=== PATIENT | male | born 1935 | race African-American/Black ===

== ENCOUNTER 2019-03-22 12:48 | Inpatient (IN) | payer MEDICARE, MEDICAID ==
[~2019-03-22] VITALS: Ht 193 cm; Wt 77.1 kg
[2019-03-22 14:17] LABS: MEAN CORPUSCULAR HEMOGLOBIN 32.5 pg (28.0-32.0); MEAN CORPUSCULAR VOLUME 89.2 fL (80.0-94.0); MEAN PLATELET VOLUME 6.8 fl (7.4-10.4); PLATELET 263 x1000/uL (130-400); RED BLOOD CELL COUNT 1.78 mill/uL (4.7-6.1); RED CELL DISTRIBUTION WIDTH 14.2 % (11.6-14.6)
[2019-03-22 14:21] LABS: HEMATOCRIT. 15.8 % (42.0-52.0); HEMOGLOBIN. 5.8 g/dL (14.0-18.0)
[2019-03-22 14:30] LABS: PLATELET ESTIMATE NORMAL
[2019-03-22] MEDS ORDERED: SODIUM CHLORIDE 3% 500ML IV SOLN IV ONE (16:45)
[2019-03-22] MEDS ORDERED: SODIUM CHLORIDE 0.45% 1,000 ML IV SCH (16:45)
[2019-03-22] MEDS ORDERED: SODIUM CHLORIDE 3% 200 ML IV ONE (17:00)
[2019-03-22 17:12] LABS: PHOSPHORUS 3.4 mg/dL (2.5-4.9)
[2019-03-22 17:15] LABS: BG BASE EXCESS -11.6 mmol/L (-2.0-2.0); BG CARBOXYHEMOGLOBIN 0.3 % (0.5-1.5); BG DEOXYHEMOGLOBIN 1.2 % (0.0-5.0); BG FRACTION INSPIRED OXYGEN 50; BG HCO3 ACT 12.7 mmol/L (22.0-26.0); BG METHEMOGLOBIN 1.1 % (0.0-1.5); BG OXYGEN SATURATION 98.8 % (92.0-98.5); BG OXYHEMOGLOBIN 97.4 % (94.0-97.0); BG PCO2 22.7 mmHg (35.0-45.0); BG PH 7.364 (7.350-7.450); BG PO2 275.3 mmHg (75.0-100.0); BG SAMPLE SITE RIGHT RADIAL; BG TIDAL VOLUME(mL) 500 mL; BG TOTAL HEMOGLOBIN 6.8 g/dL (12.0-18.0); BG VENT MODE VENT - A/C; BG VENT RATE 14 set
[2019-03-22] MEDS ORDERED: IPRATROPIUM/ALBUTEROL 0.5-3(2.5)MG/3ML NEB HHN PRN (17:15)
[2019-03-22 17:56] LABS: CLARITY URINE TURBID (CLEAR); COLOR URINE YELLOW (YELLOW); KETONES URINE NEGATIVE (NEGATIVE); LEUKOCYTE ESTERASE URINE 3+ (NEGATIVE); NITRITE URINE NEGATIVE (NEGATIVE); OCCULT BLOOD URINE TRACE (NEGATIVE); PH URINE >=9.0 (4.5-8.0); PROTEIN URINE 3+ (NEGATIVE); UROBILINOGEN URINE 0.2 E.U./dL (0.2-1.0)
[2019-03-22] MEDS ORDERED: POTASSIUM CHLORIDE IV SCH (18:00)
[2019-03-22] MEDS ORDERED: POTASSIUM CHLORIDE INJ 60 MEQ in SODIUM CHLORIDE 0.9% 500 ML IV SCH (18:00)
[2019-03-22] MEDS ORDERED: SODIUM CHLORIDE 0.45% IV SCH (18:00)
[2019-03-22] MEDS ORDERED: ONDANSETRON HCL 4MG/2ML INJ IV PRN (18:15)
[2019-03-22] MEDS ORDERED: DOCUSATE SODIUM 100MG CAPSULE PO PRN (18:15)
[2019-03-22] MEDS ORDERED: LORAZEPAM 2MG/ML CPJ IV PRN (18:15)
[2019-03-22] MEDS ORDERED: MORPHINE SULFATE 2 MG/ML CPJ (NOT FOR IM USE) IV PRN (18:15)
[2019-03-22] MEDS ORDERED: ACETAMINOPHEN 650MG/20.3ML UDC GT PRN (18:15)
[2019-03-22] MEDS ORDERED: HYDROCODONE/ACETAMINOPHEN 5/325MG TABLET PO PRN (18:15)
[2019-03-22] MEDS ORDERED: PANTOPRAZOLE SODIUM 40 MG/VIAL IV SCH (18:15)
[2019-03-22] MEDS ORDERED: CLINDAMYCIN 600MG PREMIX 50 ML IV SCH (18:30)
[2019-03-22 18:43] LABS: TOTAL IRON BINDING CAPACITY 198 ug/dL (250-450)
[2019-03-22] MEDS ORDERED: SODIUM BICARBONATE 8.4% 1 MEQ/ML 50ML SYR IV NR (19:40)
[2019-03-22 20:00] VITALS: BP 159/76
[2019-03-22] MEDS ORDERED: MAGNESIUM 1 G PREMIX 100 ML IV NR (21:00)
[2019-03-22 22:00] VITALS: BP 159/84
[2019-03-22] MEDS: CLINDAMYCIN 600MG PREMIX 50 ML IV SCH (22:37)
[2019-03-22] MEDS: PANTOPRAZOLE SODIUM 40 MG/VIAL IV SCH (22:41)
[2019-03-22] MEDS: SODIUM CHLORIDE 0.45% 1,000 ML IV SCH (22:46)
[2019-03-23] VITALS (17 sets, daily range): BP systolic 122–184; BP diastolic 60–88
[2019-03-23] MEDS ORDERED: AMLO10TA4 GT (00:27)
[2019-03-23] MEDS ORDERED: FERR220S12 GT (00:34)
[2019-03-23] MEDS ORDERED: KEPPSOL GT (00:34)
[2019-03-23] MEDS ORDERED: CHOL400T31 GT (00:34)
[2019-03-23] MEDS ORDERED: LORA1TAB GT (00:34)
[2019-03-23] MEDS ORDERED: HYDR-4134 GT (00:34)
[2019-03-23] MEDS ORDERED: ACET-2178 GT (00:34)
[2019-03-23] MEDS ORDERED: OR220 GT (00:34)
[2019-03-23] MEDS ORDERED: VIT500LI GT (00:34)
[2019-03-23] MEDS ORDERED: RANI150C12 GT (00:34)
[2019-03-23] MEDS ORDERED: MULT-1116 GT (00:40)
[2019-03-23] MEDS: INSULIN LISPRO 100 UNITS/ML SUBCUT SCH ×4 (01:28→17:52)
[2019-03-23] MEDS: IPRATROPIUM/ALBUTEROL 0.5-3(2.5)MG/3ML NEB HHN SCH ×5 (04:17→20:32)
[2019-03-23] MEDS: CLINDAMYCIN 600MG PREMIX 50 ML IV SCH ×3 (06:34→21:09)
[2019-03-23] MEDS: BLOOD SUGAR DIAGNOSTIC STRIP TEST SCH ×3 (06:48→17:52)
[2019-03-23] MEDS ORDERED: INSULIN LISPRO 100 UNITS/ML SUBCUT SCH (08:00)
[2019-03-23] MEDS: PANTOPRAZOLE SODIUM 40 MG/VIAL IV SCH (09:29)
[2019-03-23 10:36] LABS: CHLORIDE 76 mEq/L (98-107)
[2019-03-23] MEDS ORDERED: MAGNESIUM 2 G PREMIX 50 ML IV NR (11:00)
[2019-03-23] MEDS: CITRIC ACID/SODIUM CITRATE SOLN 30ML UDC PO SCH ×3 (11:52→17:22)
[2019-03-23] MEDS ORDERED: POTASSIUM CHLORIDE 20MEQ/PACKET PO NR (12:00)
[2019-03-23 13:54] LABS: HEMATOCRIT. 22.6 % (42.0-52.0); HEMOGLOBIN. 8.3 g/dL (14.0-18.0); MEAN CORPUSCULAR HEMOGLOBIN 32.7 pg (28.0-32.0); MEAN CORPUSCULAR VOLUME 88.9 fL (80.0-94.0); PLATELET 263 x1000/uL (130-400); RED BLOOD CELL COUNT 2.54 mill/uL (4.7-6.1); RED CELL DISTRIBUTION WIDTH 15.5 % (11.6-14.6)
[2019-03-23] MEDS: SODIUM CHLORIDE 0.45% 1,000 ML IV SCH (14:40)
[2019-03-23 17:21] LABS: NUCLEATED RED BLOOD CELLS 1 /100 WBC; PLATELET ESTIMATE NORMAL
[2019-03-24] VITALS (20 sets, daily range): BP systolic 103–161; BP diastolic 52–83
[2019-03-24] MEDS: BLOOD SUGAR DIAGNOSTIC STRIP TEST SCH ×4 (00:06→17:36)
[2019-03-24] MEDS: IPRATROPIUM/ALBUTEROL 0.5-3(2.5)MG/3ML NEB HHN SCH ×6 (00:21→20:33)
[2019-03-24] MEDS: ACETYLCYSTEINE 100MG/ML 10% VIAL 4ML INH SCH ×2 (00:21→12:05)
[2019-03-24] MEDS: CLINDAMYCIN 600MG PREMIX 50 ML IV SCH ×3 (04:42→22:58)
[2019-03-24] MEDS: INSULIN LISPRO 100 UNITS/ML SUBCUT SCH ×4 (06:00→17:36)
[2019-03-24] MEDS: SODIUM CHLORIDE 0.45% 1,000 ML IV SCH (06:22)
[2019-03-24] MEDS: PANTOPRAZOLE SODIUM 40 MG/VIAL IV SCH (08:03)
[2019-03-24] MEDS: CITRIC ACID/SODIUM CITRATE SOLN 30ML UDC PO SCH ×3 (09:13→17:00)
[2019-03-24 09:46] LABS: PHOSPHORUS 4.4 mg/dL (2.5-4.9)
[2019-03-24 11:41] LABS: MEAN CORPUSCULAR HEMOGLOBIN 33.4 pg (28.0-32.0)
[2019-03-24 11:56] LABS: MEAN CORPUSCULAR VOLUME 90.2 fL (80.0-94.0); MEAN PLATELET VOLUME 6.2 fl (7.4-10.4); PLATELET 178 x1000/uL (130-400); RED CELL DISTRIBUTION WIDTH 15.1 % (11.6-14.6)
[2019-03-24 11:58] LABS: HEMOGLOBIN. 5.7 g/dL (14.0-18.0)
[2019-03-24 11:59] LABS: HEMATOCRIT. 15.3 % (42.0-52.0)
[2019-03-24] MEDS ORDERED: SODIUM BICARBONATE 4% (2.4MEQ) 5ML VIAL IV ONE (13:04)
[2019-03-24] MEDS ORDERED: LIDOCAINE HCL 1% 20ML VIAL (Pyxis) INJ ONE (13:04)
[2019-03-24 13:49] LABS: NUCLEATED RED BLOOD CELLS 1 /100 WBC; PLATELET ESTIMATE NORMAL
[2019-03-24] MEDS ORDERED: LEVOFLOXACIN 750MG PREMIX 150 ML IV SCH (15:00)
[2019-03-24 23:51] LABS: HEMATOCRIT 22.9 % (42.0-52.0); HEMOGLOBIN 8.4 g/dL (14.0-18.0)
[2019-03-25] VITALS (12 sets, daily range): BP systolic 119–160; BP diastolic 54–90
[2019-03-25] MEDS: IPRATROPIUM/ALBUTEROL 0.5-3(2.5)MG/3ML NEB HHN SCH ×7 (00:35→23:48)
[2019-03-25] MEDS: ACETYLCYSTEINE 100MG/ML 10% VIAL 4ML INH SCH ×4 (00:35→23:48)
[2019-03-25] MEDS: BLOOD SUGAR DIAGNOSTIC STRIP TEST SCH ×4 (00:52→17:33)
[2019-03-25] MEDS: SODIUM CHLORIDE 0.45% 1,000 ML IV SCH ×2 (00:53→17:33)
[2019-03-25] MEDS: CLINDAMYCIN 600MG PREMIX 50 ML IV SCH ×3 (05:23→21:12)
[2019-03-25] MEDS: INSULIN LISPRO 100 UNITS/ML SUBCUT SCH ×4 (05:29→17:33)
[2019-03-25 07:10] LABS: BG BASE EXCESS -9.9 mmol/L (-2.0-2.0); BG CARBOXYHEMOGLOBIN 0.3 % (0.5-1.5); BG DEOXYHEMOGLOBIN 1.1 % (0.0-5.0); BG HCO3 ACT 13.9 mmol/L (22.0-26.0); BG METHEMOGLOBIN 0.8 % (0.0-1.5); BG OXYGEN SATURATION 98.9 % (92.0-98.5); BG OXYHEMOGLOBIN 97.8 % (94.0-97.0); BG PCO2 24.1 mmHg (35.0-45.0); BG PH 7.379 (7.350-7.450); BG PO2 194.5 mmHg (75.0-100.0); BG SAMPLE SITE RIGHT RADIAL; BG TIDAL VOLUME(mL) 500 mL; BG TOTAL HEMOGLOBIN 9.2 g/dL (12.0-18.0); BG VENT MODE VENT - A/C; BG VENT RATE 14 set
[2019-03-25] MEDS: CITRIC ACID/SODIUM CITRATE SOLN 30ML UDC PO SCH ×3 (09:17→17:33)
[2019-03-25] MEDS: PANTOPRAZOLE SODIUM 40 MG/VIAL IV SCH (09:18)
[2019-03-25] MEDS ORDERED: DIATR MEGLU/DIATRIZOATE SOLN 30ML PO SCH (10:00)
[2019-03-25] MEDS ORDERED: IOHEXOL-300 100 ML BOTTLE ONE (14:33)
[2019-03-26] VITALS (14 sets, daily range): BP systolic 118–158; BP diastolic 55–79
[2019-03-26] MEDS: BLOOD SUGAR DIAGNOSTIC STRIP TEST SCH ×4 (00:27→17:13)
[2019-03-26] MEDS: IPRATROPIUM/ALBUTEROL 0.5-3(2.5)MG/3ML NEB HHN SCH ×5 (03:52→20:14)
[2019-03-26] MEDS: CLINDAMYCIN 600MG PREMIX 50 ML IV SCH ×3 (04:23→20:34)
[2019-03-26] MEDS: INSULIN LISPRO 100 UNITS/ML SUBCUT SCH ×4 (06:00→17:13)
[2019-03-26 06:25] LABS: CHLORIDE 90 mEq/L (98-107)
[2019-03-26] MEDS: ACETYLCYSTEINE 100MG/ML 10% VIAL 4ML INH SCH ×2 (07:50→15:43)
[2019-03-26 08:03] LABS: BG BASE EXCESS -8.8 mmol/L (-2.0-2.0); BG CARBOXYHEMOGLOBIN 0.3 % (0.5-1.5); BG DEOXYHEMOGLOBIN 1.3 % (0.0-5.0); BG HCO3 ACT 15.2 mmol/L (22.0-26.0); BG METHEMOGLOBIN 0.3 % (0.0-1.5); BG OXYGEN SATURATION 98.7 % (92.0-98.5); BG OXYHEMOGLOBIN 98.1 % (94.0-97.0); BG PCO2 26.2 mmHg (35.0-45.0); BG PO2 145.4 mmHg (75.0-100.0); BG SAMPLE SITE RIGHT RADIAL; BG TIDAL VOLUME(mL) 500 mL; BG TOTAL HEMOGLOBIN 8.7 g/dL (12.0-18.0); BG VENT MODE VENT - A/C; BG VENT RATE 14 set
[2019-03-26] MEDS: PANTOPRAZOLE SODIUM 40 MG/VIAL IV SCH (09:04)
[2019-03-26] MEDS: SODIUM CHLORIDE 0.45% 1,000 ML IV SCH (09:04)
[2019-03-26] MEDS: CITRIC ACID/SODIUM CITRATE SOLN 30ML UDC PO SCH ×3 (09:04→17:13)
[2019-03-26] MEDS: LEVOFLOXACIN 500MG PREMIX 100 ML IV SCH (09:09)
[2019-03-26 09:10] LABS: HEMOGLOBIN. 7.1 g/dL (14.0-18.0); MEAN CORPUSCULAR HEMOGLOBIN 31.6 pg (28.0-32.0); MEAN CORPUSCULAR VOLUME 88.9 fL (80.0-94.0); MEAN PLATELET VOLUME 6.6 fl (7.4-10.4); PLATELET 194 x1000/uL (130-400); RED BLOOD CELL COUNT 2.26 mill/uL (4.7-6.1); RED CELL DISTRIBUTION WIDTH 16.8 % (11.6-14.6)
[2019-03-26 09:16] LABS: HEMATOCRIT. 20.1 % (42.0-52.0)
[2019-03-26 11:23] LABS: PLATELET ESTIMATE NORMAL
[2019-03-27] VITALS (11 sets, daily range): BP systolic 129–158; BP diastolic 71–86
[2019-03-27] MEDS: IPRATROPIUM/ALBUTEROL 0.5-3(2.5)MG/3ML NEB HHN SCH ×6 (00:27→20:34)
[2019-03-27] MEDS: ACETYLCYSTEINE 100MG/ML 10% VIAL 4ML INH SCH ×3 (00:27→20:39)
[2019-03-27] MEDS: SODIUM CHLORIDE 0.45% 1,000 ML IV SCH ×2 (01:27→22:36)
[2019-03-27] MEDS: CLINDAMYCIN 600MG PREMIX 50 ML IV SCH ×3 (04:34→20:43)
[2019-03-27] MEDS: INSULIN LISPRO 100 UNITS/ML SUBCUT SCH ×3 (06:00→12:00)
[2019-03-27] MEDS: BLOOD SUGAR DIAGNOSTIC STRIP TEST SCH ×3 (06:00→12:00)
[2019-03-27] MEDS: PANTOPRAZOLE SODIUM 40 MG/VIAL IV SCH (09:08)
[2019-03-27] MEDS: CITRIC ACID/SODIUM CITRATE SOLN 30ML UDC PO SCH ×3 (09:08→19:12)
[2019-03-27 12:06] LABS: HEMATOCRIT. 28.5 % (42.0-52.0); MEAN CORPUSCULAR HEMOGLOBIN 30.6 pg (28.0-32.0); MEAN CORPUSCULAR VOLUME 87.2 fL (80.0-94.0); MEAN PLATELET VOLUME 6.5 fl (7.4-10.4); PLATELET 187 x1000/uL (130-400); RED BLOOD CELL COUNT 3.27 mill/uL (4.7-6.1)
[2019-03-27 12:30] LABS: PLATELET ESTIMATE NORMAL
[2019-03-28] VITALS (13 sets, daily range): BP systolic 125–168; BP diastolic 67–96
[2019-03-28] MEDS: BLOOD SUGAR DIAGNOSTIC STRIP TEST SCH ×4 (00:39→18:29)
[2019-03-28] MEDS: IPRATROPIUM/ALBUTEROL 0.5-3(2.5)MG/3ML NEB HHN SCH ×7 (00:51→23:52)
[2019-03-28] MEDS: CLINDAMYCIN 600MG PREMIX 50 ML IV SCH ×3 (04:38→21:06)
[2019-03-28 05:37] LABS: HEMOGLOBIN. 10.3 g/dL (14.0-18.0); MEAN CORPUSCULAR VOLUME 87.2 fL (80.0-94.0); MEAN PLATELET VOLUME 6.8 fl (7.4-10.4); PLATELET 180 x1000/uL (130-400); RED BLOOD CELL COUNT 3.32 mill/uL (4.7-6.1)
[2019-03-28] MEDS: INSULIN LISPRO 100 UNITS/ML SUBCUT SCH ×4 (06:00→18:00)
[2019-03-28] MEDS: ACETYLCYSTEINE 100MG/ML 10% VIAL 4ML INH SCH ×2 (07:58→15:52)
[2019-03-28] MEDS: CITRIC ACID/SODIUM CITRATE SOLN 30ML UDC PO SCH ×3 (08:40→18:29)
[2019-03-28] MEDS: PANTOPRAZOLE SODIUM 40 MG/VIAL IV SCH (08:40)
[2019-03-28] MEDS: LEVOFLOXACIN 500MG PREMIX 100 ML IV SCH (08:45)
[2019-03-28 10:26] LABS: PLATELET ESTIMATE NORMAL
[2019-03-28] MEDS: CLONIDINE 0.1MG TABLET PO PRN (10:28)
[2019-03-28] MEDS: POLYVINYL ALCOHOL OPHTH DROPS 15ML EACHEYE SCH ×2 (13:56→18:29)
[2019-03-28] MEDS: SODIUM CHLORIDE 0.45% 1,000 ML IV SCH (17:21)
[2019-03-28] MEDS: DEXTROSE 50% WATER 50ML SYRINGE IV PRN (17:37)
[2019-03-28] MEDS ORDERED: LIDOCAINE HCL/EPINEPHRINE 1%-EPI 1:100,000 30 ML VIAL INFIL SCH (21:00)
[2019-03-28] MEDS ORDERED: LIDOCAINE HCL/EPINEPHRINE 1%-EPI 1:100,000 20 ML VIAL INFIL SCH (21:00)
[2019-03-29] VITALS (17 sets, daily range): BP systolic 126–174; BP diastolic 69–97
[2019-03-29] MEDS: BLOOD SUGAR DIAGNOSTIC STRIP TEST SCH ×5 (00:29→23:36)
[2019-03-29] MEDS: POLYVINYL ALCOHOL OPHTH DROPS 15ML EACHEYE SCH ×5 (00:29→23:36)
[2019-03-29] MEDS: IPRATROPIUM/ALBUTEROL 0.5-3(2.5)MG/3ML NEB HHN SCH ×5 (03:39→19:54)
[2019-03-29] MEDS: SODIUM CHLORIDE 0.45% 1,000 ML IV SCH ×2 (04:54→22:03)
[2019-03-29] MEDS: CLINDAMYCIN 600MG PREMIX 50 ML IV SCH ×3 (04:57→22:03)
[2019-03-29] MEDS: INSULIN LISPRO 100 UNITS/ML SUBCUT SCH ×4 (06:00→18:00)
[2019-03-29 08:29] LABS: HEMATOCRIT. 27.4 % (42.0-52.0); HEMOGLOBIN. 9.5 g/dL (14.0-18.0); MEAN CORPUSCULAR HEMOGLOBIN 30.6 pg (28.0-32.0); MEAN PLATELET VOLUME 6.4 fl (7.4-10.4); PLATELET 143 x1000/uL (130-400); RED BLOOD CELL COUNT 3.12 mill/uL (4.7-6.1); RED CELL DISTRIBUTION WIDTH 17.1 % (11.6-14.6)
[2019-03-29] MEDS: ACETYLCYSTEINE 100MG/ML 10% VIAL 4ML INH SCH ×2 (09:02→16:43)
[2019-03-29] MEDS: PANTOPRAZOLE SODIUM 40 MG/VIAL IV SCH (09:46)
[2019-03-29] MEDS: CITRIC ACID/SODIUM CITRATE SOLN 30ML UDC PO SCH ×3 (09:46→19:12)
[2019-03-29 10:13] LABS: PLATELET ESTIMATE NORMAL
[2019-03-29] MEDS: CLONIDINE 0.1MG TABLET PO PRN (13:49)
[2019-03-29] MEDS: DEXTROSE 50% WATER 50ML SYRINGE IV PRN (19:17)
[2019-03-30] VITALS (13 sets, daily range): BP systolic 118–178; BP diastolic 62–92
[2019-03-30] MEDS: IPRATROPIUM/ALBUTEROL 0.5-3(2.5)MG/3ML NEB HHN SCH ×6 (00:04→20:40)
[2019-03-30] MEDS: DEXTROSE 50% WATER 50ML SYRINGE IV PRN ×3 (00:08→18:33)
[2019-03-30] MEDS: POLYVINYL ALCOHOL OPHTH DROPS 15ML EACHEYE SCH ×3 (05:38→17:45)
[2019-03-30] MEDS: BLOOD SUGAR DIAGNOSTIC STRIP TEST SCH ×4 (05:38→23:55)
[2019-03-30] MEDS: INSULIN LISPRO 100 UNITS/ML SUBCUT SCH ×5 (05:56→23:56)
[2019-03-30 06:20] LABS: HEMATOCRIT. 25.9 % (42.0-52.0); HEMOGLOBIN. 8.9 g/dL (14.0-18.0); MEAN CORPUSCULAR HEMOGLOBIN 30.8 pg (28.0-32.0); MEAN PLATELET VOLUME 6.6 fl (7.4-10.4); PLATELET 133 x1000/uL (130-400); RED BLOOD CELL COUNT 2.91 mill/uL (4.7-6.1)
[2019-03-30] MEDS ORDERED: DEXT 5%/0.9% NACL 1,000 ML IV SCH (07:15)
[2019-03-30] MEDS: PANTOPRAZOLE SODIUM 40 MG/VIAL IV SCH (09:05)
[2019-03-30] MEDS: LEVOFLOXACIN 500MG PREMIX 100 ML IV SCH (09:05)
[2019-03-30] MEDS: CLONIDINE 0.1MG TABLET PO PRN ×2 (12:26→21:57)
[2019-03-30 14:12] LABS: PLATELET ESTIMATE NORMAL
[2019-03-31] VITALS (12 sets, daily range): BP systolic 125–177; BP diastolic 70–96
[2019-03-31] MEDS: POLYVINYL ALCOHOL OPHTH DROPS 15ML EACHEYE SCH ×4 (00:09→17:59)
[2019-03-31] MEDS: IPRATROPIUM/ALBUTEROL 0.5-3(2.5)MG/3ML NEB HHN SCH ×6 (00:47→20:08)
[2019-03-31] MEDS: HYDRALAZINE 20MG/ML VIAL IV PRN ×2 (03:13→12:55)
[2019-03-31] MEDS: INSULIN LISPRO 100 UNITS/ML SUBCUT SCH ×3 (06:00→18:00)
[2019-03-31] MEDS: BLOOD SUGAR DIAGNOSTIC STRIP TEST SCH ×3 (06:29→17:59)
[2019-03-31] MEDS: DEXTROSE 50% WATER 50ML SYRINGE IV PRN ×2 (06:30→18:11)
[2019-03-31 06:45] LABS: HEMATOCRIT. 25.3 % (42.0-52.0); HEMOGLOBIN. 8.8 g/dL (14.0-18.0); MEAN CORPUSCULAR HEMOGLOBIN 31.2 pg (28.0-32.0); MEAN CORPUSCULAR VOLUME 89.4 fL (80.0-94.0); MEAN PLATELET VOLUME 6.7 fl (7.4-10.4); PLATELET 127 x1000/uL (130-400); RED BLOOD CELL COUNT 2.83 mill/uL (4.7-6.1); RED CELL DISTRIBUTION WIDTH 17.2 % (11.6-14.6)
[2019-03-31] MEDS: FAMOTIDINE 20MG/2ML VIAL IV SCH (09:04)
[2019-03-31 09:57] LABS: PLATELET ESTIMATE SLIGHTLY DECREASED
[2019-03-31] MEDS: HYDRALAZINE HCL 50MG TABLET PO SCH ×2 (14:47→22:15)
[2019-03-31] MEDS: LOSARTAN POTASSIUM 50 MG TABLET PO SCH (14:47)
[2019-03-31] MEDS: LEVETIRACETAM 250MG TABLET PO SCH (20:36)
[2019-04-01] VITALS (14 sets, daily range): BP systolic 142–180; BP diastolic 80–101
[2019-04-01] MEDS: IPRATROPIUM/ALBUTEROL 0.5-3(2.5)MG/3ML NEB HHN SCH ×7 (02:55→23:43)
[2019-04-01] MEDS: INSULIN LISPRO 100 UNITS/ML SUBCUT SCH ×5 (06:00→23:39)
[2019-04-01] MEDS: HYDRALAZINE HCL 50MG TABLET PO SCH ×3 (06:42→22:49)
[2019-04-01] MEDS: POLYVINYL ALCOHOL OPHTH DROPS 15ML EACHEYE SCH ×5 (06:47→23:39)
[2019-04-01] MEDS: BLOOD SUGAR DIAGNOSTIC STRIP TEST SCH ×5 (06:47→23:39)
[2019-04-01] MEDS: LEVETIRACETAM 250MG TABLET PO SCH (09:38)
[2019-04-01] MEDS: LOSARTAN POTASSIUM 50 MG TABLET PO SCH (09:38)
[2019-04-01] MEDS: FAMOTIDINE 20MG/2ML VIAL IV SCH (09:38)
[2019-04-01] MEDS: LEVOFLOXACIN 500MG TABLET PO SCH (11:13)
[2019-04-01] MEDS: HYDRALAZINE 20MG/ML VIAL IV PRN (16:53)
[2019-04-01] MEDS: LEVETIRACETAM 500MG TABLET PO SCH (20:39)
[2019-04-02] VITALS (12 sets, daily range): BP systolic 138–159; BP diastolic 73–90
[2019-04-02] MEDS: IPRATROPIUM/ALBUTEROL 0.5-3(2.5)MG/3ML NEB HHN SCH ×5 (03:12→20:21)
[2019-04-02] MEDS: HYDRALAZINE HCL 50MG TABLET PO SCH ×3 (06:00→21:09)
[2019-04-02] MEDS: INSULIN LISPRO 100 UNITS/ML SUBCUT SCH ×3 (06:00→17:17)
[2019-04-02] MEDS: POLYVINYL ALCOHOL OPHTH DROPS 15ML EACHEYE SCH ×3 (06:00→17:17)
[2019-04-02] MEDS: BLOOD SUGAR DIAGNOSTIC STRIP TEST SCH ×3 (06:00→16:55)
[2019-04-02] MEDS: DEXTROSE 50% WATER 50ML SYRINGE IV PRN (06:02)
[2019-04-02 06:38] LABS: BASOPHILS % 0.7 % (0.0-2.0); EOSINOPHILS % 1.7 % (0.0-5.0); HEMATOCRIT. 25.6 % (42.0-52.0); HEMOGLOBIN. 8.8 g/dL (14.0-18.0); LYMPHOCYTES % 10.6 % (20.0-50.0); MEAN CORPUSCULAR VOLUME 90.7 fL (80.0-94.0); MEAN PLATELET VOLUME 6.8 fl (7.4-10.4); MONOCYTES % 5.6 % (2.0-8.0); NEUTROPHILS % 81.4 % (40.0-76.0); PLATELET 135 x1000/uL (130-400); RED BLOOD CELL COUNT 2.82 mill/uL (4.7-6.1); RED CELL DISTRIBUTION WIDTH 17.2 % (11.6-14.6)
[2019-04-02 06:51] LABS: CHLORIDE 104 mEq/L (98-107)
[2019-04-02] MEDS: LEVETIRACETAM 500MG TABLET PO SCH ×2 (09:05→21:08)
[2019-04-02] MEDS: LOSARTAN POTASSIUM 50 MG TABLET PO SCH (09:05)
[2019-04-02] MEDS: FAMOTIDINE 20MG/2ML VIAL IV SCH (09:05)
[2019-04-03] VITALS (11 sets, daily range): BP systolic 123–160; BP diastolic 67–85
[2019-04-03] MEDS: IPRATROPIUM/ALBUTEROL 0.5-3(2.5)MG/3ML NEB HHN SCH ×4 (00:06→12:40)
[2019-04-03] MEDS: BLOOD SUGAR DIAGNOSTIC STRIP TEST SCH ×3 (00:54→12:08)
[2019-04-03] MEDS: POLYVINYL ALCOHOL OPHTH DROPS 15ML EACHEYE SCH ×3 (00:54→12:09)
[2019-04-03] MEDS: HYDRALAZINE HCL 50MG TABLET PO SCH ×2 (05:42→14:25)
[2019-04-03] MEDS: INSULIN LISPRO 100 UNITS/ML SUBCUT SCH ×3 (05:57→12:00)
[2019-04-03 06:42] LABS: INR 1.1; PROTHROMBIN TIME 11.7 sec (9.6-11.0)
[2019-04-03 06:51] LABS: BASOPHILS % 0.5 % (0.0-2.0); EOSINOPHILS % 1.6 % (0.0-5.0); HEMATOCRIT. 26.6 % (42.0-52.0); HEMOGLOBIN. 9.1 g/dL (14.0-18.0); LYMPHOCYTES % 9.3 % (20.0-50.0); MEAN CORPUSCULAR HEMOGLOBIN 31.5 pg (28.0-32.0); MEAN CORPUSCULAR VOLUME 91.8 fL (80.0-94.0); MEAN PLATELET VOLUME 7.2 fl (7.4-10.4); MONOCYTES % 4.5 % (2.0-8.0); NEUTROPHILS % 84.1 % (40.0-76.0); PLATELET 129 x1000/uL (130-400); RED CELL DISTRIBUTION WIDTH 17.3 % (11.6-14.6)
[2019-04-03] MEDS: FAMOTIDINE 20MG/2ML VIAL IV SCH (08:43)
[2019-04-03] MEDS: LOSARTAN POTASSIUM 50 MG TABLET PO SCH (08:43)
[2019-04-03] MEDS: LEVETIRACETAM 500MG TABLET PO SCH (08:43)
[2019-04-03] MEDS: LEVOFLOXACIN 500MG TABLET PO SCH (12:07)
[2019-04-03] MEDS ORDERED: CLONAZEPAM 0.5MG TABLET PO SCH (14:00)
== END 2019-04-03 23:46 | disposition home or self-care (01) | DRG 853 ==
LOC: ER 12:48 → 5EST 15:57 → EDBEDREQTM 16:17 → EDBEDREQ 16:17 → SUPCPDRO 17:59 → ENRESERV 18:28
PROVIDERS: ADMIT Hospitalist; ATTEND Hospitalist
PROC: 5A1955Z Respiratory Ventilation, Greater than 96 Consecutive Hours (ICD-10-PCS; principal; 2019-03-22)
PROC: 30233N1 Transfusion of Nonautologous Red Blood Cells into Peripheral Vein, Percutaneous Approach (ICD-10-PCS; 2019-03-22)
PROC: 02HV33Z Insertion of Infusion Device into Superior Vena Cava, Percutaneous Approach (ICD-10-PCS; 2019-03-24)
PROC: B548ZZA Ultrasonography of Superior Vena Cava, Guidance (ICD-10-PCS; 2019-03-24)
PROC: 0KBP0ZZ Excision of Left Hip Muscle, Open Approach (ICD-10-PCS; 2019-03-29)
PROC: 0KBN0ZZ Excision of Right Hip Muscle, Open Approach (ICD-10-PCS; 2019-03-29)
PROC: 0KBG0ZZ Excision of Left Trunk Muscle, Open Approach (ICD-10-PCS; 2019-03-29)
PROC: 0KBF0ZZ Excision of Right Trunk Muscle, Open Approach (ICD-10-PCS; 2019-03-29)
PROC: 0KBP0ZZ Excision of Left Hip Muscle, Open Approach (ICD-10-PCS; 2019-03-29)
PROC: 0KBN0ZZ Excision of Right Hip Muscle, Open Approach (ICD-10-PCS; 2019-03-29)
DX: A41.53 Sepsis due to Serratia (principal); L89.154 Pressure ulcer of sacral region, stage 4; L89.313 Pressure ulcer of right buttock, stage 3; L89.323 Pressure ulcer of left buttock, stage 3; J96.20 Acute and chronic respiratory failure, unspecified whether with hypoxia or hypercapnia; N17.0 Acute kidney failure with tubular necrosis; J15.6 Pneumonia due to other Gram-negative bacteria; G93.40 Encephalopathy, unspecified; E87.1 Hypo-osmolality and hyponatremia; E46 Unspecified protein-calorie malnutrition; N39.0 Urinary tract infection, site not specified; Z99.11 Dependence on respirator [ventilator] status; N18.9 Chronic kidney disease, unspecified; D63.8 Anemia in other chronic diseases classified elsewhere; E87.6 Hypokalemia; E11.22 Type 2 diabetes mellitus with diabetic chronic kidney disease; I12.9 Hypertensive chronic kidney disease with stage 1 through stage 4 chronic kidney disease, or unspecified chronic kidney disease; E83.42 Hypomagnesemia; E11.649 Type 2 diabetes mellitus with hypoglycemia without coma; I71.2 Thoracic aortic aneurysm, without rupture; I87.2 Venous insufficiency (chronic) (peripheral); R56.9 Unspecified convulsions; R00.1 Bradycardia, unspecified; Z68.20 Body mass index [BMI] 20.0-20.9, adult; Z93.0 Tracheostomy status; I69.90 Unspecified sequelae of unspecified cerebrovascular disease; Z88.0 Allergy status to penicillin; Z88.8 Allergy status to other drugs, medicaments and biological substances; Z79.899 Other long term (current) drug therapy
CPT/HCPCS: 36415; 36600; 71045; 71260; 74177; 76937; 80048; 80061; 81003; 82375; 82533; 82575; 82805; 82962; 83540; 83550; 83735; 83930; 83935; 84100; 84133; 84134; 84295; 84300; 84443; 85014; 85018; 86850; 86900; 86920; 87070; 87077; 87186; 93005; 94002; 94003; 94640; 96361; 96365; 99291; A6261; C1725; C9113; J0360; J1815; J1956; J2060; J3475; J3480; J3490; J7040; J7608; J7620; P9016; P9021; Q9963; Q9967

== ENCOUNTER 2019-06-23 10:14 | Inpatient (IN) | payer MEDICARE, MEDICAID ==
[~2019-06-23] VITALS: Ht 182.9 cm; Wt 76.2 kg
[~2019-06-23 10:14] MED LIST: AMLO10TA4 GT; CHOL400T31 GT; FERR220S12 GT; HYDR-4134 GT; KEPPSOL GT; LORA1TAB GT; MULT-1116 GT; OR220 GT; RANI150C12 GT; TOPUD GT; VIT500LI GT
[2019-06-23] MEDS ORDERED: SODIUM CHLORIDE 0.9% 1,000 ML IV ONE (10:24)
[2019-06-23 10:56] LABS: BG BASE EXCESS -6.1 mmol/L (-2.0-2.0); BG CARBOXYHEMOGLOBIN 0.3 % (0.5-1.5); BG DEOXYHEMOGLOBIN 1.2 % (0.0-5.0); BG HCO3 ACT 17.9 mmol/L (22.0-26.0); BG METHEMOGLOBIN 0.7 % (0.0-1.5); BG OXYGEN SATURATION 98.8 % (92.0-98.5); BG OXYHEMOGLOBIN 97.8 % (94.0-97.0); BG PCO2 28.7 mmHg (35.0-45.0); BG PH 7.413 (7.350-7.450); BG PO2 160.7 mmHg (75.0-100.0); BG SAMPLE SITE RIGHT BRACHIAL; BG TIDAL VOLUME(mL) 550 mL; BG TOTAL HEMOGLOBIN 6.2 g/dL (12.0-18.0); BG VENT MODE VENT - A/C; BG VENT RATE 18 set
[2019-06-23 11:05] LABS: CHLORIDE 80 mEq/L (98-107); INR 1.2; PROTHROMBIN TIME 11.9 sec (9.6-11.0)
[2019-06-23 11:21] LABS: TOTAL IRON BINDING CAPACITY 154 ug/dL (250-450)
[2019-06-23 11:29] LABS: BASOPHILS % 0.3 % (0.0-2.0); EOSINOPHILS % 3.4 % (0.0-5.0); LYMPHOCYTES % 7.5 % (20.0-50.0); MEAN CORPUSCULAR VOLUME 92.8 fL (80.0-94.0); MEAN PLATELET VOLUME 6.5 fl (7.4-10.4); MONOCYTES % 4.9 % (2.0-8.0); NEUTROPHILS % 83.9 % (40.0-76.0); PLATELET 251 x1000/uL (130-400); RED BLOOD CELL COUNT 1.81 mill/uL (4.7-6.1); RED CELL DISTRIBUTION WIDTH 16.1 % (11.6-14.6)
[2019-06-23 11:32] LABS: HEMATOCRIT. 16.8 % (42.0-52.0)
[2019-06-23] MEDS: SODIUM CHLORIDE 0.9% 1,000 ML IV SCH (12:00)
[2019-06-23 13:02] LABS: CLARITY URINE CLEAR (CLEAR); COLOR URINE YELLOW (YELLOW); KETONES URINE NEGATIVE (NEGATIVE); LEUKOCYTE ESTERASE URINE 2+ (NEGATIVE); NITRITE URINE NEGATIVE (NEGATIVE); OCCULT BLOOD URINE TRACE (NEGATIVE); PH URINE 8.5 (4.5-8.0); PROTEIN URINE 3+ (NEGATIVE); SPECIFIC GRAVITY URINE 1.008 (1.005-1.030); UROBILINOGEN URINE 0.2 E.U./dL (0.2-1.0)
[2019-06-23] MEDS ORDERED: ONDANSETRON HCL 4MG/2ML INJ IV PRN (13:30)
[2019-06-23] MEDS ORDERED: DOCUSATE SODIUM 100MG CAPSULE PO PRN (13:30)
[2019-06-23] MEDS ORDERED: IPRATROPIUM/ALBUTEROL 0.5-3(2.5)MG/3ML NEB NEB PRN (13:30)
[2019-06-23] MEDS ORDERED: LORAZEPAM 2MG/ML CPJ IV PRN (13:30)
[2019-06-23] MEDS: AMLODIPINE 10MG TABLET PO SCH (15:07)
[2019-06-23] MEDS ORDERED: LEVOFLOXACIN 250MG PREMIX 50 ML IV NR (15:30)
[2019-06-23 15:37] LABS: SODIUM URINE RANDOM 33 mEq/L
[2019-06-23] MEDS ORDERED: PANTOPRAZOLE SODIUM 40 MG/VIAL IV SCH (23:06)
[2019-06-23 23:53] LABS: HEMOGLOBIN. 7.5 g/dL (14.0-18.0); MEAN CORPUSCULAR VOLUME 91.8 fL (80.0-94.0); MEAN PLATELET VOLUME 6.7 fl (7.4-10.4); PLATELET 275 x1000/uL (130-400); RED BLOOD CELL COUNT 2.29 mill/uL (4.7-6.1); RED CELL DISTRIBUTION WIDTH 16.3 % (11.6-14.6)
[2019-06-24] VITALS (18 sets, daily range): BP systolic 104–177; BP diastolic 52–94
[2019-06-24 03:33] LABS: PLATELET ESTIMATE NORMAL
[2019-06-24] MEDS ORDERED: DEXTROSE 50% WATER 50ML SYRINGE IV PRN ×2 (07:15→08:00)
[2019-06-24] MEDS ORDERED: BLOOD SUGAR DIAGNOSTIC STRIP TEST SCH (07:30)
[2019-06-24] MEDS ORDERED: INSULIN LISPRO 100 UNITS/ML SUBCUT SCH (08:00)
[2019-06-24] MEDS: INSULIN LISPRO 100 UNITS/ML SUBCUT SCH ×4 (08:00→21:00)
[2019-06-24 08:11] LABS: MEAN CORPUSCULAR HEMOGLOBIN 32.5 pg (28.0-32.0); MEAN CORPUSCULAR VOLUME 91.2 fL (80.0-94.0); MEAN PLATELET VOLUME 6.4 fl (7.4-10.4); PLATELET 227 x1000/uL (130-400); RED BLOOD CELL COUNT 1.83 mill/uL (4.7-6.1); RED CELL DISTRIBUTION WIDTH 16.2 % (11.6-14.6)
[2019-06-24] MEDS: AMLODIPINE 10MG TABLET PO SCH (08:24)
[2019-06-24 08:31] LABS: CHLORIDE 86 mEq/L (98-107)
[2019-06-24 08:43] LABS: HEMATOCRIT. 16.7 % (42.0-52.0)
[2019-06-24] MEDS: ACETYLCYSTEINE 100MG/ML 10% VIAL 4ML INH SCH ×2 (09:30→16:44)
[2019-06-24] MEDS: IPRATROPIUM/ALBUTEROL 0.5-3(2.5)MG/3ML NEB HHN SCH ×3 (09:30→20:56)
[2019-06-24] MEDS: BLOOD SUGAR DIAGNOSTIC STRIP TEST SCH ×3 (12:30→21:22)
[2019-06-24] MEDS ORDERED: VANCOMYCIN 1500MG in DEXTROSE 5% WATER 250ML IV NR (14:00)
[2019-06-24 21:13] LABS: PLATELET ESTIMATE NORMAL
[2019-06-24] MEDS: PANTOPRAZOLE SODIUM 40 MG/VIAL IV SCH (21:57)
[2019-06-25] VITALS (15 sets, daily range): BP systolic 115–156; BP diastolic 57–76
[2019-06-25] MEDS: IPRATROPIUM/ALBUTEROL 0.5-3(2.5)MG/3ML NEB HHN SCH ×4 (01:19→20:28)
[2019-06-25 07:11] LABS: HEMATOCRIT. 22.9 % (42.0-52.0); HEMOGLOBIN. 7.8 g/dL (14.0-18.0); MEAN CORPUSCULAR HEMOGLOBIN 30.9 pg (28.0-32.0); MEAN PLATELET VOLUME 6.5 fl (7.4-10.4); PLATELET 209 x1000/uL (130-400); RED BLOOD CELL COUNT 2.51 mill/uL (4.7-6.1); RED CELL DISTRIBUTION WIDTH 16.6 % (11.6-14.6)
[2019-06-25] MEDS: INSULIN LISPRO 100 UNITS/ML SUBCUT SCH ×3 (08:00→17:05)
[2019-06-25 08:03] LABS: CHLORIDE 94 mEq/L (98-107)
[2019-06-25] MEDS: PANTOPRAZOLE SODIUM 40 MG/VIAL IV SCH (08:21)
[2019-06-25] MEDS: BLOOD SUGAR DIAGNOSTIC STRIP TEST SCH ×3 (08:22→17:05)
[2019-06-25] MEDS: AMLODIPINE 10MG TABLET PO SCH (08:22)
[2019-06-25] MEDS ORDERED: POTASSIUM CHLORIDE INJ 40 MEQ in DEXT 5% WATER 250 ML IV NR (10:00)
[2019-06-25] MEDS: SODIUM CHLORIDE 0.9% 1,000 ML IV SCH (12:14)
[2019-06-25] MEDS ORDERED: LEVOFLOXACIN 250MG PREMIX 50 ML IV SCH (14:00)
[2019-06-25] MEDS ORDERED: *TOBRAMYCIN PER PHARMACY XX SCH (14:30)
[2019-06-25] MEDS: ACETYLCYSTEINE 100MG/ML 10% VIAL 4ML INH SCH (16:41)
[2019-06-25] MEDS ORDERED: TOBRAMYCIN SULFATE 80 MG in SODIUM CHLORIDE 0.9% 100 ML IV SCH (17:00)
[2019-06-26] VITALS (13 sets, daily range): BP systolic 129–159; BP diastolic 62–79
[2019-06-26] MEDS: BLOOD SUGAR DIAGNOSTIC STRIP TEST SCH ×4 (00:49→18:09)
[2019-06-26] MEDS: IPRATROPIUM/ALBUTEROL 0.5-3(2.5)MG/3ML NEB HHN SCH ×3 (02:03→20:23)
[2019-06-26] MEDS: ACETYLCYSTEINE 100MG/ML 10% VIAL 4ML INH SCH ×3 (02:04→16:30)
[2019-06-26] MEDS: INSULIN LISPRO 100 UNITS/ML SUBCUT SCH ×4 (06:00→18:00)
[2019-06-26 06:36] LABS: CHLORIDE 99 mEq/L (98-107)
[2019-06-26] MEDS: SODIUM CHLORIDE 0.9% 1,000 ML IV SCH ×2 (06:40→13:19)
[2019-06-26 06:57] LABS: TOBRAMYCIN RANDOM 1.8 ucg/mL
[2019-06-26 07:06] LABS: HEMATOCRIT. 24.2 % (42.0-52.0); HEMOGLOBIN. 8.4 g/dL (14.0-18.0); MEAN CORPUSCULAR HEMOGLOBIN 31.4 pg (28.0-32.0); MEAN CORPUSCULAR VOLUME 90.7 fL (80.0-94.0); MEAN PLATELET VOLUME 6.5 fl (7.4-10.4); PLATELET 245 x1000/uL (130-400); RED BLOOD CELL COUNT 2.67 mill/uL (4.7-6.1)
[2019-06-26] MEDS: PANTOPRAZOLE SODIUM 40 MG/VIAL IV SCH (08:10)
[2019-06-26] MEDS: AMLODIPINE 10MG TABLET PO SCH (08:10)
[2019-06-26] MEDS ORDERED: VANCOMYCIN 1 G PREMIX 200 ML IV SCH (11:00)
[2019-06-26] MEDS: IPRATROPIUM/ALBUTEROL 0.5-3(2.5)MG/3ML NEB HHN PRN ×2 (12:40→16:30)
[2019-06-26 13:13] LABS: PLATELET ESTIMATE NORMAL
[2019-06-26] MEDS: CITRIC ACID/SODIUM CITRATE SOLN 30ML UDC PO SCH ×2 (13:38→16:46)
[2019-06-26 16:14] LABS: PLATELET ESTIMATE NORMAL
[2019-06-27] VITALS (12 sets, daily range): BP systolic 129–166; BP diastolic 52–84
[2019-06-27] MEDS: IPRATROPIUM/ALBUTEROL 0.5-3(2.5)MG/3ML NEB HHN SCH ×4 (02:16→20:44)
[2019-06-27] MEDS: BLOOD SUGAR DIAGNOSTIC STRIP TEST SCH ×5 (05:41→23:25)
[2019-06-27] MEDS: INSULIN LISPRO 100 UNITS/ML SUBCUT SCH ×5 (06:00→23:43)
[2019-06-27] MEDS: ACETYLCYSTEINE 100MG/ML 10% VIAL 4ML INH SCH (08:24)
[2019-06-27] MEDS ORDERED: TOBRAMYCIN SULFATE 80 MG in SODIUM CHLORIDE 0.9% 100 ML IV SCH (09:00)
[2019-06-27] MEDS: AMLODIPINE 10MG TABLET PO SCH (09:38)
[2019-06-27] MEDS: PANTOPRAZOLE SODIUM 40 MG/VIAL IV SCH (09:38)
[2019-06-27] MEDS: CITRIC ACID/SODIUM CITRATE SOLN 30ML UDC PO SCH ×3 (09:38→16:50)
[2019-06-27] MEDS: SODIUM CHLORIDE 0.9% 1,000 ML IV SCH (10:19)
[2019-06-27 10:37] LABS: HEMATOCRIT. 24.1 % (42.0-52.0); HEMOGLOBIN. 8.2 g/dL (14.0-18.0); MEAN CORPUSCULAR HEMOGLOBIN 31.3 pg (28.0-32.0); MEAN CORPUSCULAR VOLUME 92.3 fL (80.0-94.0); MEAN PLATELET VOLUME 6.3 fl (7.4-10.4); PLATELET 223 x1000/uL (130-400); RED BLOOD CELL COUNT 2.61 mill/uL (4.7-6.1); RED CELL DISTRIBUTION WIDTH 17.1 % (11.6-14.6)
[2019-06-27 10:51] LABS: PHOSPHORUS 3.9 mg/dL (2.5-4.9)
[2019-06-27 16:55] LABS: PLATELET ESTIMATE NORMAL
[2019-06-27 18:29] LABS: HEPATITIS B SURFACE ANTIGEN NEGATIVE
[2019-06-27 20:42] LABS: HEPATITIS B SURFACE AB 11.2 mIU/mL
[2019-06-28] VITALS (12 sets, daily range): BP systolic 132–158; BP diastolic 58–87
[2019-06-28] MEDS: DAPTOMYCIN 500 MG in SODIUM CHLORIDE 0.9% 50 ML IV SCH (01:22)
[2019-06-28] MEDS: IPRATROPIUM/ALBUTEROL 0.5-3(2.5)MG/3ML NEB HHN SCH ×4 (01:23→20:28)
[2019-06-28] MEDS: SODIUM CHLORIDE 0.9% 1,000 ML IV SCH (05:10)
[2019-06-28] MEDS: BLOOD SUGAR DIAGNOSTIC STRIP TEST SCH ×4 (05:52→23:51)
[2019-06-28] MEDS: INSULIN LISPRO 100 UNITS/ML SUBCUT SCH ×4 (05:56→23:50)
[2019-06-28 07:08] LABS: HEMATOCRIT. 24.7 % (42.0-52.0); HEMOGLOBIN. 8.4 g/dL (14.0-18.0); MEAN CORPUSCULAR HEMOGLOBIN 31.5 pg (28.0-32.0); MEAN CORPUSCULAR VOLUME 92.1 fL (80.0-94.0); MEAN PLATELET VOLUME 6.2 fl (7.4-10.4); PLATELET 240 x1000/uL (130-400); RED BLOOD CELL COUNT 2.68 mill/uL (4.7-6.1); RED CELL DISTRIBUTION WIDTH 17.1 % (11.6-14.6)
[2019-06-28 07:46] LABS: PHOSPHORUS 3.6 mg/dL (2.5-4.9)
[2019-06-28] MEDS: ACETYLCYSTEINE 100MG/ML 10% VIAL 4ML INH SCH ×2 (07:46→15:19)
[2019-06-28] MEDS: CITRIC ACID/SODIUM CITRATE SOLN 30ML UDC PO SCH ×3 (08:43→18:06)
[2019-06-28] MEDS: AMLODIPINE 10MG TABLET PO SCH (08:44)
[2019-06-28] MEDS: PANTOPRAZOLE SODIUM 40 MG/VIAL IV SCH (08:44)
[2019-06-28] MEDS: IPRATROPIUM/ALBUTEROL 0.5-3(2.5)MG/3ML NEB HHN PRN (15:18)
[2019-06-28 16:54] LABS: PLATELET ESTIMATE NORMAL
[2019-06-28] MEDS: ACETAMINOPHEN 650MG/20.3ML UDC GT PRN (23:02)
[2019-06-29] VITALS (11 sets, daily range): BP systolic 97–171; BP diastolic 52–98
[2019-06-29] MEDS: IPRATROPIUM/ALBUTEROL 0.5-3(2.5)MG/3ML NEB HHN SCH ×4 (02:17→20:21)
[2019-06-29] MEDS: ACETAMINOPHEN 650MG/20.3ML UDC GT PRN (04:35)
[2019-06-29] MEDS: CLONIDINE 0.1MG TABLET PO PRN (05:20)
[2019-06-29] MEDS: BLOOD SUGAR DIAGNOSTIC STRIP TEST SCH ×3 (06:00→17:07)
[2019-06-29] MEDS: INSULIN LISPRO 100 UNITS/ML SUBCUT SCH ×3 (06:00→17:07)
[2019-06-29 06:12] LABS: HIV SCREEN 4G Non Reactive (Non Reactive)
[2019-06-29] MEDS: LIDOCAINE HCL/EPINEPHRINE 1%-EPI 1:100,000 20 ML VIAL INFIL SCH ×2 (06:47→20:30)
[2019-06-29 07:11] LABS: HEMATOCRIT. 25.3 % (42.0-52.0); HEMOGLOBIN. 8.7 g/dL (14.0-18.0); MEAN CORPUSCULAR HEMOGLOBIN 31.5 pg (28.0-32.0); MEAN CORPUSCULAR VOLUME 91.8 fL (80.0-94.0); MEAN PLATELET VOLUME 6.5 fl (7.4-10.4); PLATELET 222 x1000/uL (130-400); RED BLOOD CELL COUNT 2.75 mill/uL (4.7-6.1); RED CELL DISTRIBUTION WIDTH 16.7 % (11.6-14.6)
[2019-06-29] MEDS: ACETYLCYSTEINE 100MG/ML 10% VIAL 4ML INH SCH ×2 (08:30→14:14)
[2019-06-29] MEDS: CITRIC ACID/SODIUM CITRATE SOLN 30ML UDC PO SCH ×3 (08:46→19:04)
[2019-06-29] MEDS: AMLODIPINE 10MG TABLET PO SCH ×2 (08:47→12:10)
[2019-06-29] MEDS: FAMOTIDINE 20MG/2ML VIAL IV SCH (08:47)
[2019-06-29] MEDS ORDERED: TOBRAMYCIN SULFATE 80 MG in SODIUM CHLORIDE 0.9% 100 ML IV SCH (09:00)
[2019-06-29] MEDS ORDERED: MORPHINE SULFATE 2 MG/ML CPJ (NOT FOR IM USE) IV PRN (11:30)
[2019-06-29] MEDS ORDERED: LORAZEPAM 2MG/ML CPJ IV PRN ×2 (11:30)
[2019-06-29 12:31] LABS: PLATELET ESTIMATE NORMAL
[2019-06-29] MEDS ORDERED: KCL 20MEQ/100ML PREMIX 100 ML IV NR (13:00)
[2019-06-30] VITALS (12 sets, daily range): BP systolic 92–161; BP diastolic 49–89
[2019-06-30] MEDS: DAPTOMYCIN 500 MG in SODIUM CHLORIDE 0.9% 50 ML IV SCH (00:10)
[2019-06-30] MEDS: IPRATROPIUM/ALBUTEROL 0.5-3(2.5)MG/3ML NEB HHN SCH ×4 (02:05→20:51)
[2019-06-30] MEDS: INSULIN LISPRO 100 UNITS/ML SUBCUT SCH ×4 (06:00→17:26)
[2019-06-30] MEDS: BLOOD SUGAR DIAGNOSTIC STRIP TEST SCH ×4 (06:00→17:26)
[2019-06-30 08:01] LABS: EOSINOPHILS % 7.7 % (0.0-5.0); HEMATOCRIT. 22.3 % (42.0-52.0); HEMOGLOBIN. 7.6 g/dL (14.0-18.0); LYMPHOCYTES % 8.9 % (20.0-50.0); MEAN CORPUSCULAR HEMOGLOBIN 31.8 pg (28.0-32.0); MEAN CORPUSCULAR VOLUME 92.8 fL (80.0-94.0); MEAN PLATELET VOLUME 6.5 fl (7.4-10.4); NEUTROPHILS % 77.4 % (40.0-76.0); PLATELET 209 x1000/uL (130-400); RED CELL DISTRIBUTION WIDTH 17.2 % (11.6-14.6)
[2019-06-30 08:15] LABS: CHLORIDE 113 mEq/L (98-107)
[2019-06-30 08:27] LABS: TOBRAMYCIN RANDOM 3.2 ucg/mL
[2019-06-30] MEDS: FERROUS SULFATE 325MG TABLET PO SCH ×3 (09:45→17:20)
[2019-06-30] MEDS: FAMOTIDINE 20MG/2ML VIAL IV SCH (09:45)
[2019-06-30] MEDS: FOLIC ACID 1MG TABLET PO SCH (09:45)
[2019-06-30] MEDS: AMLODIPINE 10MG TABLET PO SCH (09:45)
[2019-06-30] MEDS: CALCIUM CARBONATE 1250MG TABLET (500MG ELEMENTAL CALCIUM) PO SCH (10:00)
[2019-06-30] MEDS: CLONIDINE 0.1MG TABLET PO PRN (10:00)
[2019-06-30 15:35] LABS: BG BASE EXCESS -0.3 mmol/L (-2.0-2.0); BG CARBOXYHEMOGLOBIN 0.3 % (0.5-1.5); BG FRACTION INSPIRED OXYGEN 30; BG HCO3 ACT 23.2 mmol/L (22.0-26.0); BG METHEMOGLOBIN 0.5 % (0.0-1.5); BG OXYHEMOGLOBIN 98.2 % (94.0-97.0); BG PCO2 32.5 mmHg (35.0-45.0); BG PH 7.471 (7.350-7.450); BG PO2 178.1 mmHg (75.0-100.0); BG SAMPLE SITE RIGHT RADIAL; BG TIDAL VOLUME(mL) 550 mL; BG TOTAL HEMOGLOBIN 7.7 g/dL (12.0-18.0); BG VENT MODE VENT - A/C; BG VENT RATE 18 set
[2019-07-01] VITALS (19 sets, daily range): BP systolic 119–161; BP diastolic 60–86
[2019-07-01] MEDS: BLOOD SUGAR DIAGNOSTIC STRIP TEST SCH ×5 (00:38→22:58)
[2019-07-01] MEDS: IPRATROPIUM/ALBUTEROL 0.5-3(2.5)MG/3ML NEB HHN SCH ×4 (01:57→19:46)
[2019-07-01] MEDS: INSULIN LISPRO 100 UNITS/ML SUBCUT SCH ×5 (05:15→22:58)
[2019-07-01 06:04] LABS: BASOPHILS % 0.9 % (0.0-2.0); EOSINOPHILS % 9.4 % (0.0-5.0); HEMOGLOBIN. 7.2 g/dL (14.0-18.0); LYMPHOCYTES % 13.4 % (20.0-50.0); MEAN CORPUSCULAR HEMOGLOBIN 32.4 pg (28.0-32.0); MEAN CORPUSCULAR VOLUME 93.6 fL (80.0-94.0); MEAN PLATELET VOLUME 6.9 fl (7.4-10.4); MONOCYTES % 7.1 % (2.0-8.0); NEUTROPHILS % 69.2 % (40.0-76.0); PLATELET 192 x1000/uL (130-400); RED BLOOD CELL COUNT 2.21 mill/uL (4.7-6.1); RED CELL DISTRIBUTION WIDTH 17.3 % (11.6-14.6)
[2019-07-01 06:45] LABS: HEMATOCRIT. 20.7 % (42.0-52.0)
[2019-07-01 06:54] LABS: PHOSPHORUS 1.8 mg/dL (2.5-4.9)
[2019-07-01] MEDS ORDERED: FUROSEMIDE 20MG/2ML VIAL IVP SCH ×2 (07:15→07:30)
[2019-07-01] MEDS: FAMOTIDINE 20MG/2ML VIAL IV SCH (09:58)
[2019-07-01] MEDS: CALCIUM CARBONATE 1250MG TABLET (500MG ELEMENTAL CALCIUM) PO SCH (09:58)
[2019-07-01] MEDS: FERROUS SULFATE 325MG TABLET PO SCH ×3 (09:58→16:37)
[2019-07-01] MEDS: AMLODIPINE 10MG TABLET PO SCH (09:58)
[2019-07-01] MEDS: FOLIC ACID 1MG TABLET PO SCH (09:58)
[2019-07-01] MEDS: ACETAMINOPHEN 650MG/20.3ML UDC GT PRN (10:40)
[2019-07-01] MEDS: POTASSIUM PHOS,M-BASIC-D-BASIC 10 MMOL in DEXT 5% WATER 246.6667 ML IV NR ×2 (15:00→16:41)
[2019-07-01] MEDS: CLONIDINE 0.1MG TABLET PO PRN (16:59)
[2019-07-01] MEDS: DAPTOMYCIN 500 MG in SODIUM CHLORIDE 0.9% 50 ML IV SCH (22:58)
[2019-07-02] VITALS (11 sets, daily range): BP systolic 96–157; BP diastolic 44–95
[2019-07-02] MEDS: IPRATROPIUM/ALBUTEROL 0.5-3(2.5)MG/3ML NEB HHN SCH ×4 (03:44→20:41)
[2019-07-02] MEDS: BLOOD SUGAR DIAGNOSTIC STRIP TEST SCH ×3 (05:16→17:23)
[2019-07-02] MEDS: INSULIN LISPRO 100 UNITS/ML SUBCUT SCH ×3 (05:16→17:23)
[2019-07-02 06:47] LABS: BASOPHILS % 0.8 % (0.0-2.0); EOSINOPHILS % 9.6 % (0.0-5.0); HEMATOCRIT. 27.4 % (42.0-52.0); HEMOGLOBIN. 9.6 g/dL (14.0-18.0); LYMPHOCYTES % 14.5 % (20.0-50.0); MEAN CORPUSCULAR HEMOGLOBIN 32.3 pg (28.0-32.0); MEAN CORPUSCULAR VOLUME 92.2 fL (80.0-94.0); MEAN PLATELET VOLUME 7.3 fl (7.4-10.4); MONOCYTES % 6.6 % (2.0-8.0); NEUTROPHILS % 68.5 % (40.0-76.0); PLATELET 184 x1000/uL (130-400); RED BLOOD CELL COUNT 2.98 mill/uL (4.7-6.1); RED CELL DISTRIBUTION WIDTH 16.7 % (11.6-14.6)
[2019-07-02 07:51] LABS: PHOSPHORUS 2.2 mg/dL (2.5-4.9)
[2019-07-02] MEDS: FOLIC ACID 1MG TABLET PO SCH (08:08)
[2019-07-02] MEDS: FERROUS SULFATE 325MG TABLET PO SCH ×3 (08:08→17:32)
[2019-07-02] MEDS: CALCIUM CARBONATE 1250MG TABLET (500MG ELEMENTAL CALCIUM) PO SCH (08:08)
[2019-07-02] MEDS: AMLODIPINE 10MG TABLET PO SCH (08:08)
[2019-07-02] MEDS: FAMOTIDINE 20MG/2ML VIAL IV SCH (08:08)
[2019-07-03] VITALS (8 sets, daily range): BP systolic 152–171; BP diastolic 81–99
[2019-07-03] MEDS: IPRATROPIUM/ALBUTEROL 0.5-3(2.5)MG/3ML NEB HHN SCH ×3 (01:12→15:19)
[2019-07-03 07:00] LABS: BASOPHILS % 0.5 % (0.0-2.0); EOSINOPHILS % 8.2 % (0.0-5.0); HEMATOCRIT. 30.9 % (42.0-52.0); HEMOGLOBIN. 10.5 g/dL (14.0-18.0); LYMPHOCYTES % 9.1 % (20.0-50.0); MEAN CORPUSCULAR VOLUME 94.1 fL (80.0-94.0); MEAN PLATELET VOLUME 7.3 fl (7.4-10.4); MONOCYTES % 5.4 % (2.0-8.0); NEUTROPHILS % 76.8 % (40.0-76.0); PLATELET 199 x1000/uL (130-400); RED BLOOD CELL COUNT 3.28 mill/uL (4.7-6.1); RED CELL DISTRIBUTION WIDTH 16.5 % (11.6-14.6)
[2019-07-03] MEDS: FOLIC ACID 1MG TABLET PO SCH (08:38)
[2019-07-03] MEDS: FERROUS SULFATE 325MG TABLET PO SCH ×3 (08:38→17:41)
[2019-07-03] MEDS: CALCIUM CARBONATE 1250MG TABLET (500MG ELEMENTAL CALCIUM) PO SCH (08:38)
[2019-07-03] MEDS: AMLODIPINE 10MG TABLET PO SCH (08:38)
[2019-07-03] MEDS: FAMOTIDINE 20MG/2ML VIAL IV SCH (08:38)
[2019-07-03] MEDS: INSULIN LISPRO 100 UNITS/ML SUBCUT SCH ×2 (12:00→17:42)
[2019-07-03] MEDS: BLOOD SUGAR DIAGNOSTIC STRIP TEST SCH ×2 (12:38→17:42)
[2019-07-03] MEDS: CLONIDINE 0.1MG TABLET PO PRN (18:49)
== END 2019-07-03 19:23 | disposition home health service (06) | DRG 853 ==
LOC: ER 10:14 → EDBEDREQ 11:43 → EDBEDREQTM 11:43 → CANRESERV 18:24 → ENRESERV 18:24 → 5EST 06-24 00:36
PROVIDERS: ADMIT Hospitalist; ATTEND Hospitalist
PROC: 5A1955Z Respiratory Ventilation, Greater than 96 Consecutive Hours (ICD-10-PCS; principal; 2019-06-23)
PROC: 30233N1 Transfusion of Nonautologous Red Blood Cells into Peripheral Vein, Percutaneous Approach (ICD-10-PCS; 2019-06-23)
PROC: 0WBL0ZZ Excision of Lower Back, Open Approach (ICD-10-PCS; 2019-06-29)
PROC: 0QB10ZZ Excision of Sacrum, Open Approach (ICD-10-PCS; 2019-06-29)
PROC: 0KBP0ZZ Excision of Left Hip Muscle, Open Approach (ICD-10-PCS; 2019-06-29)
PROC: 05H533Z Insertion of Infusion Device into Right Subclavian Vein, Percutaneous Approach (ICD-10-PCS; 2019-07-02)
PROC: B546ZZA Ultrasonography of Right Subclavian Vein, Guidance (ICD-10-PCS; 2019-07-02)
PROC: 0KBN0ZZ Excision of Right Hip Muscle, Open Approach (ICD-10-PCS; 2019-07-02)
DX: A41.02 Sepsis due to Methicillin resistant Staphylococcus aureus (principal); L89.154 Pressure ulcer of sacral region, stage 4; L89.324 Pressure ulcer of left buttock, stage 4; L89.314 Pressure ulcer of right buttock, stage 4; L89.144 Pressure ulcer of left lower back, stage 4; L89.134 Pressure ulcer of right lower back, stage 4; N17.0 Acute kidney failure with tubular necrosis; J15.6 Pneumonia due to other Gram-negative bacteria; E43 Unspecified severe protein-calorie malnutrition; N39.0 Urinary tract infection, site not specified; N18.5 Chronic kidney disease, stage 5; E87.1 Hypo-osmolality and hyponatremia; E87.2 Acidosis; I12.0 Hypertensive chronic kidney disease with stage 5 chronic kidney disease or end stage renal disease; J96.10 Chronic respiratory failure, unspecified whether with hypoxia or hypercapnia; G93.49 Other encephalopathy; A41.81 Sepsis due to Enterococcus; B95.62 Methicillin resistant Staphylococcus aureus infection as the cause of diseases classified elsewhere; D63.8 Anemia in other chronic diseases classified elsewhere; E11.22 Type 2 diabetes mellitus with diabetic chronic kidney disease; E83.41 Hypermagnesemia; B96.5 Pseudomonas (aeruginosa) (mallei) (pseudomallei) as the cause of diseases classified elsewhere; E87.6 Hypokalemia; G40.909 Epilepsy, unspecified, not intractable, without status epilepticus; Z93.1 Gastrostomy status; Z97.0 Presence of artificial eye; Z86.73 Personal history of transient ischemic attack (TIA), and cerebral infarction without residual deficits; Z68.22 Body mass index [BMI] 22.0-22.9, adult; Z88.0 Allergy status to penicillin; Z79.899 Other long term (current) drug therapy
CPT/HCPCS: 36415; 36600; 71045; 76937; 80048; 80061; 80200; 80202; 81003; 82375; 82533; 82550; 82575; 82805; 82962; 83540; 83550; 83605; 83735; 83880; 83930; 83935; 84100; 84134; 84145; 84156; 84295; 84300; 84443; 84484; 85044; 85651; 86140; 86850; 86900; 86920; 87070; 87077; 87186; 87389; 93005; 93306; 93970; 94002; 96365; 99291; A6261; C1725; C9113; J0878; J1940; J1956; J2270; J3260; J3370; J3480; J3490; J7030; J7040; J7050; J7060; J7608; J7620; P9016; A4315